=== PATIENT | male | born 1940 | race Caucasian/White ===

== ENCOUNTER 2023-10-30 05:15 | Emergency (ER) | payer MEDICAID ==
[~2023-10-30] VITALS: Ht 172.7 cm; Wt 73.0 kg
[2023-10-30 05:36] LABS: BASOPHILS % 0.6 % (0.0-2.0); EOSINOPHILS % 3.9 % (0.0-5.0); HEMATOCRIT. 41.8 % (42.0-52.0); HEMOGLOBIN. 14.6 g/dL (14.0-18.0); LYMPHOCYTES % 21.4 % (20.0-50.0); MEAN CORPUSCULAR HGB CONC 34.8 g/dL (31.0-37.0); MEAN PLATELET VOLUME 6.2 fl (7.4-10.4); MONOCYTES % 11.5 % (2.0-8.0); NEUTROPHILS % 62.6 % (40.0-76.0); PLATELET 257 x1000/uL (130-400); RED CELL DISTRIBUTION WIDTH 14.8 % (11.6-14.6); WHITE BLOOD COUNT 6.5 x1000/uL (4.5-11.0)
[2023-10-30 05:41] LABS: CARBON DIOXIDE 30 mEq/L (21-32); CHLORIDE 103 mEq/L (98-107); POTASSIUM 3.5 mEq/L (3.5-5.1); SODIUM 137 mEq/L (136-145)
[2023-10-30 05:46] LABS: CREATININE 0.8 mg/dL (0.6-1.3); GLUCOSE 131 mg/dL (70-105)
[2023-10-30 05:47] LABS: UREA NITROGEN BLOOD 12 mg/dL (9-23)
[2023-10-30 05:48] LABS: ALANINE AMINOTRANSFERASE 15 IU/L (10-49); ASPARTATE AMINOTRANSFERASE 34 IU/L (<34)
[2023-10-30 05:49] LABS: BILIRUBIN TOTAL 0.9 mg/dL (0.1-1.0); PROTEIN TOTAL 7.1 g/dL (6.0-8.3); TROPONIN I HIGH SENSITIVITY 4 ng/L (3.0-53)
[2023-10-30 05:52] LABS: ETHANOL BLOOD < 10 mg/dL (<10)
[2023-10-30 06:26] VITALS: O2SAT 97
[2023-10-30 06:36] LABS: CLARITY URINE CLOUDY (CLEAR); COLOR URINE YELLOW (YELLOW); GLUCOSE URINE NEGATIVE (NEGATIVE); KETONES URINE NEGATIVE (NEGATIVE); LEUKOCYTE ESTERASE URINE 3+ (NEGATIVE); NITRITE URINE NEGATIVE (NEGATIVE); OCCULT BLOOD URINE 2+ (NEGATIVE); PH URINE 7.5 (4.5-8.0); PROTEIN URINE 1+ (NEGATIVE); SPECIFIC GRAVITY URINE 1.013 (1.005-1.030)
[2023-10-30 07:08] LABS: *AMPHETAMINES SCREEN URINE NEGATIVE (NEGATIVE)
[2023-10-30 07:09] LABS: *BARBITURATES SCREEN URINE NEGATIVE (NEGATIVE); *BENZODIAZEPINES SCREEN URINE NEGATIVE (NEGATIVE); *COCAINE SCREEN URINE NEGATIVE (NEGATIVE); CANNABINOID URINE SCREEN NEGATIVE (NEGATIVE); ECSTASY MDMA SCREEN URINE NEGATIVE (NEGATIVE); METHADONE URINE SCREEN NEGATIVE (NEGATIVE); OPIATES URINE SCREEN NEGATIVE (NEGATIVE); PHENCYCLIDINE URINE SCREEN NEGATIVE (NEGATIVE)
[2023-10-30 07:36] LABS: WBC URINE TNTC /hpf (0-2)
[2023-10-30 07:37] LABS: RBC URINE 25-50 /hpf (0-2); SQUAMOUS EPITHELIAL CELL URINE NONE SEEN /lpf (RARE/1+)
[2023-10-30 07:38] LABS: BACTERIA URINE 2+
[2023-10-30] MEDS: CEFTRIAXONE 1GM/50ML 50 ML IV ONE (08:21)
[2023-10-30 09:28] LABS: TROPONIN I HIGH SENSITIVITY 5 ng/L (3.0-53)
[2023-10-30] MEDS ORDERED: CEPH500C2 MT (11:25)
[2023-10-30 11:42] VITALS: BP 124/89; PULSE 64; RESP 16; TEMP 98
== END 2023-10-30 11:51 | disposition home or self-care (01) ==
LOC: ER 05:15
DX: N39.0 Urinary tract infection, site not specified (principal); R00.2 Palpitations; I10 Essential (primary) hypertension; Z90.49 Acquired absence of other specified parts of digestive tract
CPT/HCPCS: 80053; 80305; 81003; 80320; 83880; 83690; 85025; 87086; 87186; 84484; 87077; 36415; 71045; 93005; 96365; 99285; J0696; Z7610; G0480